=== PATIENT | male | born 1990 | race Two or more races ===

== ENCOUNTER 2018-02-10 06:06 | Emergency (ER) | payer OTHER ==
[~2018-02-10] VITALS: Ht 172.7 cm; Wt 100.0 kg
[2018-02-10 08:09] VITALS: BP 115/56
== END 2018-02-10 09:00 | disposition home or self-care (01) ==
LOC: ED 08:58
DX: F10.120 Alcohol abuse with intoxication, uncomplicated (principal); F14.10 Cocaine abuse, uncomplicated
CPT/HCPCS: 99283